=== PATIENT | female | born 1995 | race African-American/Black ===

== ENCOUNTER 2018-05-18 10:14 | Emergency (ER) | payer MEDICAID ==
[~2018-05-18] VITALS: Ht 182.9 cm; Wt 77.1 kg
[2018-05-18] MEDS ORDERED: LIDOCAINE 1%HCL (LOCAL ANESTH) 10 ML MDV ONE (11:09)
[2018-05-18] MEDS ORDERED: cefTRIAXone SOD 1,000 MG VL IM ONE (11:15)
[2018-05-18] MEDS ORDERED: methylPREDNISolone SOD SUCC 125 MG/2 ML VL IM ONE (11:15)
== END 2018-05-18 11:38 | disposition home or self-care (01) ==
LOC: ER 10:14
DX: J03.90 Acute tonsillitis, unspecified (principal)
CPT/HCPCS: 96372; 99283; J0696; J2001; J2930